=== PATIENT | female | born 2000 | race Caucasian/White ===

== ENCOUNTER 2023-11-29 11:09 | Observation (INO) | payer OTHER, SELFPAY ==
[2023-11-29] VITALS (13 sets, daily range): BP systolic 108–124; BP diastolic 55–74; PULSE 75–104; RESP 18; TEMP 37.4; BMI 25.8
--- NOTE | 2023-11-29 11:41 | OBADM ---
This patient, Tahira Shelton, admitted to the OB room 116 for observation for labor. Patient/family oriented to hospital policies and general routines including ID bracelet, bed and alarms, visiting hours, pain management, procedures, bathroom and other care routines, personal items, smoking policy, room service/diet, and visiting hours. Patient/Family are encouraged to report perceived risks to care and to ask questions if they do not understand what they are told or what they should do.
[2023-11-29 11:51] LABS: Appearance Urine Clear (Clear); Bacteria Urine None Seen /hpf; Bilirubin Urine Negative (Negative); Blood Urine Negative (Negative); Color Urine Yellow (Yellow); Glucose Urine UA Negative (Negative); Ketones Urine Negative (Negative); Leukocyte Esterase Ur Trace LEU/UL (Negative); Nitrate Urine Negative (Negative); Non Pathogenic Casts 0-2; Protein Urine Negative (Negative); RBC Urine 0-2 /hpf (0-2); Specific Grav Ur 1.005 (1.001-1.035); Squamous Epithelial Cell Urine None seen /hpf (Few); Urobilinogen Urine 0.2 mg/dL (<2.0); WBC Urine 0-5 /hpf
[2023-11-29 11:52] LABS: Add Urine Microscopic? YES
[2023-11-29] MEDS: BETAMETHASONE SOD PHOS/ACETATE 30 MG/5 ML VIAL 12 MG IM (12:08)
[2023-11-29] MEDS: TERBUTALINE SULFATE 1 MG/ML VIAL 0.25 MG SUB-Q (12:28)
[2023-11-29] MEDS: NIFEdipine 10 MG CAPSULE PO (14:36)
[2023-11-29] MEDS: ACETAMINOPHEN 500 MG TABLET 1000 MG PO (14:56)
--- NOTE | 2023-11-30 10:46 | PM.OBTRLD ---
OB - Triage/Final Diagnosis Visit Information Comments/Additional reasons for admission: I have assessed the risk for this patient, Tahira Shelton, and determined that she would benefit from observation care. Evaluation Laboratory results: Laboratory Tests 11/29/23 11:25 Urine Color Yellow Urine Appearance Clear Urine pH 7.0 Ur Specific [place] 1.005 Urine Protein Negative Urine Glucose (UA) Negative Urine Ketones Negative Ur Blood (Man) Negative Urine Nitrate Negative Urine Bilirubin Negative Urine Urobilinogen 0.2 Leukocyte Esterase Rfl Trace H Urine RBC 0-2 Urine WBC 0-5 Ur Squamous Epith Cells None seen Urine Bacteria None seen Urine Casts 0-2 Vital signs: Vital Signs - 24 hr 11/29/23 11:38 11/29/23 11:37 11/29/23 11:45 Temperature 99.3 F Pulse Rate 83 87 Respiratory Rate 18 Blood Pressure 122/74 114/74 Oxygen Delivery Room Air 11/29/23 12:00 11/29/23 12:15 11/29/23 12:26 Temperature Pulse Rate 75 88 90 Respiratory Rate Blood Pressure 116/71 113/69 122/74 Oxygen Delivery 11/29/23 12:30 11/29/23 13:00 11/29/23 13:30 Temperature Pulse Rate 90 102 H 87 Respiratory Rate Blood Pressure 114/73 124/70 112/56 L Oxygen Delivery 11/29/23 14:00 11/29/23 14:30 11/29/23 14:33 Temperature Pulse Rate 93 92 104 H Respiratory Rate Blood Pressure 108/55 L 112/65 121/67 Oxygen Delivery 11/29/23 15:00 11/29/23 15:30 Temperature Pulse Rate 97 100 Respiratory Rate Blood Pressure 122/70 120/65 Oxygen Delivery Final Diagnosis (1) contractions: Code(s): O47.00 - False labor before 37 completed weeks of gestation, unspecified trimester Status: Acute
== END 2023-11-29 15:45 | disposition home or self-care (01) ==
PROVIDERS: Admitting Provider Obstetrics & Gynecology; PCP Family Medicine; Visit Provider Obstetrics & Gynecology
DX: O47.03 False labor before 37 completed weeks of gestation, third trimester (principal); Z3A.34 34 weeks gestation of pregnancy
CPT/HCPCS: 81001; 96372; A9270; G0378; G0379; J0702; J3105

== ENCOUNTER 2023-11-30 09:45 | Observation (INO) | payer OTHER, SELFPAY ==
[2023-11-30] VITALS (8 sets, daily range): BP systolic 107–115; BP diastolic 65–71; PULSE 82–100; TEMP 36.7; BMI 25.8
--- NOTE | 2023-11-30 09:45 | OBADM ---
This patient, Tahira Shelton, admitted to the OB room OB Post 116 for observation. Patient/family oriented to hospital policies and general routines including ID bracelet, bed and alarms, visiting hours, pain management, procedures, bathroom and other care routines, personal items, smoking policy, room service/diet, and visiting hours. Patient/Family are encouraged to report perceived risks to care and to ask questions if they do not understand what they are told or what they should do.
--- NOTE | 2023-11-30 10:40 | PC.NURSE ---
Called Dr. Mccormick with pt status. Informed of pt complaining of contractions. 1 contractions seen on monitor in 30 min. SVE /-1, unchanged from yesterday. Reactive tracing noted. Monitor for additional 30min. If no further contractions noted, may D/C home with modified bedrest and PO hydration.
[2023-11-30] MEDS: BETAMETHASONE SOD PHOS/ACETATE 30 MG/5 ML VIAL 12 MG IM (11:32)
--- NOTE | 2023-12-03 11:42 | PM.OBTRLD ---
OB - Triage/Final Diagnosis Visit Information Comments/Additional reasons for admission: I have assessed the risk for this patient, Tahira Shelton, and determined that she would benefit from observation care. Final Diagnosis (1) contractions: Code(s): O47.00 - False labor before 37 completed weeks of gestation, unspecified trimester Status: Acute
== END 2023-11-30 11:40 | disposition home or self-care (01) ==
PROVIDERS: Admitting Provider Obstetrics & Gynecology; PCP Family Medicine; Visit Provider Obstetrics & Gynecology
DX: O47.03 False labor before 37 completed weeks of gestation, third trimester (principal); Z3A.34 34 weeks gestation of pregnancy
CPT/HCPCS: 96372; G0378; G0379; J0702

== ENCOUNTER 2023-12-05 10:57 | Outpatient (CLI) | payer OTHER, SELFPAY ==
[2023-12-05 11:54] VITALS: BP 131/76; PULSE 94
== END 2023-12-05 11:45 | disposition home or self-care (01) ==
LOC: ANHOBOP 11:40 → ANHLDR 11:40
PROVIDERS: PCP Family Medicine; Visit Provider Obstetrics & Gynecology
DX: O42.90 Premature rupture of membranes, unspecified as to length of time between rupture and onset of labor, unspecified weeks of gestation (principal); Z3A.00 Weeks of gestation of pregnancy not specified
CPT/HCPCS: 59025; 84112; 99199

== ENCOUNTER 2023-12-11 17:55 | Observation (INO) | payer OTHER, SELFPAY ==
[2023-12-11 18:18] VITALS: BMI 25.8
--- NOTE | 2023-12-12 14:18 | PM.OBTRLD ---
OB - Triage/Final Diagnosis Visit Information Reason for evaluation: threatened labor Comments/Additional reasons for admission: I have assessed the risk for this patient, Tahira Robbins Nikita, and determined that she would benefit from observation care.
== END 2023-12-11 19:13 | disposition home or self-care (01) ==
PROVIDERS: Admitting Provider Obstetrics & Gynecology; PCP Family Medicine; Visit Provider Obstetrics & Gynecology
DX: O47.03 False labor before 37 completed weeks of gestation, third trimester (principal); Z3A.35 35 weeks gestation of pregnancy
CPT/HCPCS: 84112; G0378; G0379

== ENCOUNTER 2023-12-17 20:03 | Observation (INO) | payer OTHER, SELFPAY ==
[2023-12-17 22:30] VITALS: BP 110/71; PULSE 74
[2023-12-17 23:00] VITALS: BP 113/72; PULSE 74
[2023-12-17 23:30] VITALS: BP 111/67; PULSE 74
--- NOTE | 2023-12-17 23:47 | PC.NURSE ---
Updated Dr. Mccormick on cervical exam, orders received to discharge pt with instructions on when to return to the unit and to see Dr. Mccormick at her next scheduled appointment.
[2023-12-17 23:54] VITALS: BMI 26.8
--- NOTE | 2023-12-17 23:55 | OBADM ---
This patient, Tahira Shelton, admitted to the OB room Labor/Delivery/Recovery 105 for observation. Patient/family oriented to hospital policies and general routines including ID bracelet, bed and alarms, visiting hours, pain management, procedures, bathroom and other care routines, personal items, smoking policy, room service/diet, and visiting hours. Patient/Family are encouraged to report perceived risks to care and to ask questions if they do not understand what they are told or what they should do.
--- NOTE | 2023-12-19 13:56 | PM.OBTRLD ---
OB - Triage/Final Diagnosis Visit Information Comments/Additional reasons for admission: I have assessed the risk for this patient, Tahira Shelton, and determined that she would benefit from observation care. Final Diagnosis (1) Abdominal pain affecting : Code(s): O26.899 - Other specified related conditions, unspecified trimester; R10.9 - Unspecified abdominal pain Status: Acute
== END 2023-12-18 00:06 ==
PROVIDERS: Admitting Provider Obstetrics & Gynecology; PCP Family Medicine; Visit Provider Obstetrics & Gynecology
DX: O26.893 Other specified pregnancy related conditions, third trimester (principal); R10.9 Unspecified abdominal pain; Z3A.36 36 weeks gestation of pregnancy
CPT/HCPCS: G0378; G0379

== ENCOUNTER 2023-12-21 13:28 | Observation (INO) | payer OTHER, SELFPAY ==
[2023-12-21 15:26] VITALS: BMI 27.1
== END 2023-12-21 15:15 | disposition home or self-care (01) ==
PROVIDERS: Admitting Provider Obstetrics & Gynecology; PCP Family Medicine; Visit Provider Obstetrics & Gynecology
DX: O26.899 Other specified pregnancy related conditions, unspecified trimester (principal); R10.9 Unspecified abdominal pain; Z3A.00 Weeks of gestation of pregnancy not specified
CPT/HCPCS: G0378; G0379

== ENCOUNTER 2023-12-22 11:11 | Inpatient (IN) | payer OTHER, SELFPAY ==
[2023-12-22] VITALS (38 sets, daily range): BP systolic 99–140; BP diastolic 52–98; PULSE 53–113; RESP 18; TEMP 36.6–37.1; O2SAT 97–100; BMI 27.1
[2023-12-22 12:44] LABS: Basophils Absolute Auto 0.1 K/mm3 (0.0-0.1); Basophils Percent Auto 0.3 % (0.2-1.2); Eosinophils Absolute Auto 0.1 K/mm3 (0-0.3); Eosinophils Percent Auto 0.5 % (0-4.4); Hematocrit 35.6 % (37.0-47.0); Hemoglobin 10.8 g/dL (12.0-15.0); Immature Granulocyte Absolute 0.15 K/mm3 (0.00-0.031); Lymphocytes Absolute Auto 1.61 K/mm3 (0.9-3.2); Lymphocytes Percent Auto 11.1 % (18.3-44.2); Mean Corpuscular HGB Conc 30.3 g/dl (32-36); Mean Corpuscular Volume 85.6 fl (80-100); Mean Platelet Volume 9.7 fl (7.4-10.4); Monocytes Absolute Auto 0.9 K/mm3 (0.1-0.6); Monocytes Percent Auto 6.4 % (2.6-8.5); Neutrophils Absolute Auto 11.7 K/mm3 (1.3-6.7); Neutrophils Percent Auto 80.7 % (45.5-73.1); Platelet Count Result 346 k/mm3 (150-375); Red Blood Count 4.16 M/mm3 (4.2-5.4); Red Cell Distribution Width 13.4 % (11.5-14.5); White Blood Count 14.5 K/mm3 (4.5-10.0)
[2023-12-22] MEDS: LACTATED RINGERS 1,000 ML 125 ML IV CONT (12:50)
[2023-12-22] MEDS: OXYTOCIN 30 UNITS/NS 500 ML 30 UNITS/500 ML BAG IV CONT (12:51)
[2023-12-22] MEDS: AMPICILLIN 2 GM/NS 100 ML 2 GM/100 ML BAG IVPB (12:52)
--- NOTE | 2023-12-22 13:02 | LDADM ---
This patient, Tahira Shelton, was admitted to Labor/Delivery/Recovery 106 on 12/22/23 at 11:11. Plans for labor, pain management and were discussed with patient. Patient/family oriented to hospital policies and general routines including ID bracelet, bed and alarms, visiting hours, pain management, procedures, bathroom and other care routines, personal items, smoking policy, room service/diet and guest tray routines, infant security routines, and visiting hours. Patient/Family are encouraged to report perceived risks to care and to ask questions if they do not understand what they are told or what they should do. See OBIX for further documentation.
--- NOTE | 2023-12-22 14:58 | PM.IMHP ---
H&P: HPI History of Present Illness Date/Time: 12/22/23 14:58 Chief Complaint: leakage of fluid Narrative: Tahira is a 23yo @ 37.3wks who presents to L&D with a large gush of fluid @ 1900 on 12/21/23. She has had advanced cervical dilation since 34wks; has received steroids. She has presented to L&D multiple times; ROM+ was positive this time. She has been having slight bleeding, (was evaluated 12/21/23 and minimal bleeding and unchanged cervix was noted). She has been 5/80/-1 for over 1 wk. She denies any symptoms of infection. Feeling good movement. She is having contractions. Review of Systems Constitutional: Constitutional: Denies chills, Denies fever(s) and Denies headache(s) Eyes: Eyes: Denies change in vision ENT: Denies headache(s) Cardiovascular: Cardiovascular: Denies chest pain and Denies dyspnea Respiratory: Respiratory: Denies dyspnea Genitourinary: Genitourinary: Denies abnormal vaginal bleeding and Reports vaginal discharge Neurologic: Denies headache(s) Psychiatric: Psychiatric: Denies anxiety and Denies depression [facility] Past Medical History Medical History Endometriosis Lupus PCOS (polycystic ovarian syndrome) Suppression of menses Vaginal discharge Surgical History Surgical History H/O hernia repair History of hysteroscopy D & C Family History Family History (Updated 12/13/23 @ 13:57 by Trena Disal RN) Grandparent Family history of type 2 diabetes mellitus Mother No problems noted. Sibling Group B streptococcal infection Social History Social History Smoking status: Former smoker Tobacco type: e-cigarettes/vaping Smoking end date: 03/22/23 Alcohol intake: never Substance use: never Do You Feel Safe in your Home?: Yes Lack of Transportation: No Lack of Food: Never True Current Housing: I Have Housing Concerned About Future Housing: No Difficulty Paying Gas/Electric Bills: No Difficulty Paying for Meds: No Currently Unemployed: No Education: Trade/Vocational Certificate Difficulty w/ Childcare or Family Care: No Living arrangements: with family Occupation/Education: occupation Gender identity (if verbalized by the patient): Female Spiritual care concerns: No Meds Home Medications and Allergies Home Medications Medication Instructions Recorded Confirmed Type aspirin 81 mg tablet,delayed 81 mg PO DAILY 07/25/23 12/22/23 History release (Adult Low Dose Aspirin) vits no.126-ferrous fum 1 tablet PO DAILY 07/25/23 12/22/23 History 28 mg iron-folic acid 800 mcg tablet (Classic ) Allergies Allergy/AdvReac Type Severity Reaction Status Date / Time No Known Allergies Allergy Verified 12/22/23 13:10 Vital Signs Vital Signs - 24 hr 12/22/23 12:15 12/22/23 12:46 12/22/23 13:01 Temperature Pulse Rate 87 85 87 Blood Pressure 135/83 133/76 140/74 Oxygen Delivery 12/22/23 13:16 12/22/23 13:31 12/22/23 13:00 Temperature 98.7 F Pulse Rate 90 93 Blood Pressure 138/73 129/73 Oxygen Delivery 12/22/23 14:16 12/22/23 14:31 12/22/23 14:46 Temperature Pulse Rate 84 88 96 Blood Pressure 122/58 L 127/69 118/68 Oxygen Delivery 12/22/23 12:53 Temperature Pulse Rate Blood Pressure Oxygen Delivery Room Air Exam Const: General: cooperative, uncomfortable (with contractions) and obese Nutritional Appearance: obese Orientation/consciousness: patient oriented x3 Resp: Effort & Inspection: normal respiratory effort Cardio: Rate: regular rate GI: GI Palp: No abdominal tenderness : Other: FHT's: 140's/ mod parris/ + accels/ no decels - cat 1 TOCO: ctxs q3-7min Cervix: 5/80/-1 Membranes: ROM+ positive 12/22/23; had LOF 12/21/23 @ 1900 Presentation: cephalic Skin: General
--- NOTE | 2023-12-22 16:10 | PM.OBPNLAB ---
Pain Control Date/time seen: 12/22/23 16:10 Pain control: tolerating well Pelvic Exam Dilation (cm): 6 Effacement (%): 90 station: 0 Amniotic membrane status: Ruptured (forebag ruptured, clear 1610) Contractions Monitor mode: External Contraction frequency: 2 Contraction pattern: Regular Status status: Category ll (occasional late/variable) Assessment and Plan Pitocin rate (mU/min): 10 Assessment: active labor Plan: continuous present management Comments: ; Rh negative, but is antibody positive (ab identification and titer pending since she never did blood work here)-- pt reports getting rhogam with her glucose screening.
[2023-12-22] MEDS: AMPICILLIN 1 GM/NS 50 ML 1 GM/50 ML BAG IVPB (17:00)
[2023-12-22] MEDS: miSOPROStol 200 MCG TABLET 800 MCG (18:10)
[2023-12-22] MEDS: METHYLERGONOVINE MALEATE 0.2 MG/ML VIAL IM (18:20)
--- NOTE | 2023-12-22 18:27 | P.PCNOB_ITS ---
OB - Vaginal Delivery Note Procedure Delivery date: 12/22/23 Events: Other (SROM) Delivery augmentation: Pitocin Delivery monitor: External FHT and External Uterine Route of delivery: Laceration Description: Labial (right) Delivery repair: vicryl Specimen: Yes (placenta) Quantitative Blood Loss (ml): 400 Anesthesia type: Local Disposition: Floor Complications: No immediate complications [place] Baby Date of : 12/22/23 Time of : 18:02 Weeks of gestation at delivery: 37 (3) gender: Female presentation: vertex position: Right Occiput Anterior Placenta delivery description: Expressed Cord Vessel Description: 3 Vessels and Delayed Cord Clamping score one minute: 8 score five minutes: 9 Narrative: Tahira rapidly progressed to complete dilation with strong desire to push, as she did not have an epidural. She pushed for approximately 30 minutes with good maternal effort. She delivered the head over intact perineum. No nuchal cord was palpated. She easily delivered the 's shoulders and body without complication. The infant was immediately placed skin to skin and had spontaneo us cry. Delayed cord clamping was performed. The umbilical cord was then doubly clamped and cut. A segment of cord was collected for cord gases. The remaining cord blood was collected for typing. With Pitocin running and gentle downward traction on the cord, the placenta delivered without complications. Brisk bleeding was noted and bimanual massage revealed uterine atony and multiple clots were removed. Cytotec 800 mcg was placed rectally by the nurse. She was examined and a right labial laceration was identified. The laceration was repaired in the normal fashion using 3-0 Vicryl brisk bleeding was once again noted and bimanual massage revealed atony and multiple clots were once again removed. Methergine 0.2mg IM was given and the uterus was then found to be firm with minimal bleeding. Sponge, lap, instrument, needle counts were correct at the end of the procedure. Mom and baby were left bonding birthing suite in stable condition. [facility] Delivery Billing Delivery Delivery: Delivery Charge
[2023-12-22] MEDS: OXYTOCIN 30 UNITS/NS 500 ML 30 UNITS/500 ML BAG 125 UNITS IV CONT (18:34)
[2023-12-22] MEDS: WITCH HAZEL 40 PADS 1 PAD TOPICAL (20:23)
[2023-12-22] MEDS: BENZOCAINE 20% AER SPR (*SP) 56 GM CAN 1 SPRAY TOPICAL (20:23)
[2023-12-23] VITALS: BP 121/63; PULSE 88; RESP 18; TEMP 36.9; O2SAT 100
[2023-12-23 06:08] LABS: Hematocrit 31.6 % (37.0-47.0); Hemoglobin 9.7 g/dL (12.0-15.0)
--- NOTE | 2023-12-23 08:36 | P.PNOB_ITS ---
OB - PN: Subj Subjective Date/time seen: 12/23/23 08:36 Narrative: PPD#1 Tahira reports doing well today. Her bleeding is getting bar assistant today. Her pain is controlled. She is tolerating regular diet, voiding, passing gas, and ambulating without issues. She is breast feeding. OB - PN: Obj Data Labs 12/23/23 05:58 Labs: Laboratory Results - last 24 hr 12/22/23 12/23/23 12:13 05:58 WBC 14.5 H RBC 4.16 L Hgb 10.8 L 9.7 L Hct 35.6 L 31.6 L MCV 85.6 MCH 26.0 MCHC 30.3 L RDW 13.4 Plt Count 346 MPV 9.7 Immature Gran % (Auto) 1.0 H Neut % (Auto) 80.7 H Lymph % (Auto) 11.1 L [place] % (Auto) 6.4 Eos % (Auto) 0.5 Baso % (Auto) 0.3 Lymph # (Auto) 1.61 [place] # (Auto) 0.9 H Eos # (Auto) 0.1 Baso # (Auto) 0.1 Abs Immat Gran (auto) 0.15 H Absolute Neuts (auto) 11.7 H Absolute Nucleated RBC 0.0 Nucleated RBC % 0.0 Blood Type A Negative Antibody Screen Positive Antigen Identification Cancelled LAURA, IgG Interpret Not Performed LAURA, Poly Interpret Negative LAURA, Complement Interp Not Performed OB - PN A/P Assessment and Plan (1) Normal vaginal delivery of second : Code(s): O80 - Encounter for full-term uncomplicated delivery Status: Acute Plan day: 1 Plan: routine care Comments: - [facility] contacted and verified that she did get Rhogam 11/08/23; faxing results over to L&D - Anemia noted; will give venofer 500mg IV once - PO pain meds - Ambulation and hydration encouraged - Continue putting baby to breast Time Spent With Patient Time: Total time spent is greater than 50% in coordination of care (as documented) at patient's floor/unit and/or counseling patient: Review of Systems Constitutional: Constitutional: Denies chills, Denies fever(s) and Denies headache(s) Eyes: Eyes: Denies change in vision ENT: Denies dizziness and Denies headache(s) Cardiovascular: Cardiovascular: Denies chest pain, Denies palpitations and Denies dyspnea Respiratory: Respiratory: Denies cough and Denies dyspnea Gastrointestinal: Gastrointestinal: Denies nausea and Denies vomiting Neurologic: Denies dizziness and Denies headache(s) Endocrine: Endocrine: Denies palpitations Exam Const: General: cooperative, comfortable and no acute distress Orientation/consciousness: patient oriented x3 Resp: Effort & Inspection: normal respiratory effort Auscultation: clear to auscultation bilaterally Cardio: Rate: regular rate GI: Inspection: non-distended GI Palp: No abdominal tenderness and Yes Soft to palpation Auscultation: normal bowel sounds : Other: fundus firm Skin: General skin exam: normal color Neuro: General: patient oriented x3 Extrem: General: normal to inspection Psych: Appearance: grossly normal Affect: normal affect Attitude: cooperative
[2023-12-23 09:10] VITALS: BP 119/79; PULSE 85; RESP 18; TEMP 37; O2SAT 99
[2023-12-23] MEDS: IRON SUCROSE COMPLEX 500 MG in SODIUM CHLORIDE 0.9% IV 250 ML 79 MG IVPB (10:03)
[2023-12-23] MEDS: POLYSACCHARIDE IRON COMPLEX 150 MG CAPSULE PO ×2 (10:12→16:47)
[2023-12-23] MEDS: MULTIVIT/MIN/PREN/FOL AC/IRON TABLET 1 TAB PO (10:12)
[2023-12-23] MEDS: DOCUSATE SODIUM 100 MG CAPSULE PO ×2 (10:12→16:47)
[2023-12-23 13:45] VITALS: BP 111/72; PULSE 57; RESP 16; TEMP 36.5; O2SAT 100
--- NOTE | 2023-12-23 18:50 | PC.NURSE ---
1529 Called to speak with [facility] about Rhogam shot, and why was it canceled? Lab answered and stated they will look into it and call back. 174 Lab called back and stated that the Rhogam shot should be ready soon and then we can come down and pick it up. Asked if it was ok to come after report at 1830 He said yes.
[2023-12-23] MEDS: RHO(D) IMMUNE GLOBULIN 300 MCG/2 ML SYRINGE IM (19:22)
[2023-12-23 21:20] VITALS: BP 120/80; PULSE 70; RESP 16; RESP 18; TEMP 36.9; O2SAT 99
--- NOTE | 2023-12-24 06:42 | PM.OBDSVD ---
DS: Admitting Diagnosis Discharge Date 12/24/23 Admitting Diagnosis SROM DS: Discharge Diagnosis Discharge Diagnosis (1) Normal vaginal delivery of second : Code(s): O80 - Encounter for full-term uncomplicated delivery Status: Acute (2) Prolonged rupture of membranes: Code(s): O42.90 - Premature rupture of membranes, unspecified as to length of time between rupture and onset of labor, unspecified weeks of gestation Status: Acute (3) Rh negative status during : Code(s): O26.899 - Other specified related conditions, unspecified trimester; Z67.91 - Unspecified blood type, Rh negative Status: Acute OB - DS: Summary OB Procedures : Ultrasound and PTL Mgmt OB Procedures Intrapartum: Spontaneous Vag Delivery OB Procedures: : RHo (D) lg and Other (Venofer 500mg IV once) Peripartum Data Delivery Method: Natural Vaginal Laceration Description: Labial (right) complications: none 1: Gender: Female Disposition of : home Status at Discharge Functional status at discharge: independent ambulation Overall status at discharge: patient is back to baseline Time Spent with Patient Time attestation: Total time spent providing and/or coordinating discharge services: Time spent: Less than 30 minutes Exam Const: General: cooperative, healthy appearing, comfortable and no acute distress Orientation/consciousness: patient oriented x3 Resp: Effort & Inspection: normal respiratory effort Auscultation: clear to auscultation bilaterally Cardio: Rate: regular rate GI: Inspection: non-distended GI Palp: No abdominal tenderness and Yes Soft to palpation Auscultation: normal bowel sounds : Other: fundus firm Skin: General skin exam: normal color Neuro: General: patient oriented x3 Extrem: General: normal to inspection Psych: Appearance: grossly normal Affect: normal affect Attitude: cooperative DS: Data Data Completed and Pending Pending studies at discharge: Pending at discharge 12/22/23 18:06 Surgical [PTH] Routine Labs on day of discharge: Labs from last 24 hours 12/23/23 12/23/23 12/22/23 05:58 05:54 12:13 Hgb 9.7 L Hct 31.6 L Blood Type A Negative Cancelled Rho(D) Type Cancelled Antibody Screen TNP Cancelled Antibody Identification Passive Due to RH Imm Glob Antigen Identification Cancelled LAURA, Poly Interpret Negative Screen Negative Cancelled Baby's Blood Type A pos Cancelled Baby's LAURA Positive Cancelled Doses of RhIg Required 1 Cancelled Discharge Plan Discharge Attending physician on discharge: Rebeca Mccormick Discharging Clinician: Rebeca Mccormick Anticipated Discharge Date/Time: 12/24/23 11:00 Patient Disposition: Home, Self-Care Activity: may shower and pelvic rest Diet: regular Patient Instructions: Vaginal Delivery (DC) Stand Alone Forms: General Discharge Information Follow-up/Referrals: Rebeca Mccormick MD [Physician] - 4 Weeks Discharge Medications: New acetaminophen 325 mg Tablet 975 mg PO Q6H PRN (Reason: Mild Pain (1-3) Or Headache) Qty: 100 0RF docusate sodium 100 mg Capsule 100 mg PO BID PRN (Reason: Constipation) Qty: 100 0RF ibuprofen 600 mg Tablet 600 mg PO Q6H PRN (Reason: Cramping) Qty: 60 0RF Continued Classic 28 mg iron- 800 mcg tablet 1 tablet PO DAILY Discontinued aspirin [Adult Low Dose Aspirin] 81 mg tablet,delayed release (DR/EC) 81 mg PO DAILY Date of admission: 12/22/23 11:11 Primary Care Provider: Gamal,Bridget Yan Admitting Provider: Rebeca Mccormick Attending physician on admission: Rebeca Mccormick Condition: Stable
[2023-12-24 08:00] VITALS: BP 119/74; PULSE 87; RESP 16; TEMP 36.6; O2SAT 100
[2023-12-24] MEDS: MULTIVIT/MIN/PREN/FOL AC/IRON TABLET 1 TAB PO (08:15)
[2023-12-24] MEDS: DOCUSATE SODIUM 100 MG CAPSULE PO (08:15)
[2023-12-24] MEDS: POLYSACCHARIDE IRON COMPLEX 150 MG CAPSULE PO (08:15)
--- NOTE | 2023-12-24 10:04 | PC.NURSE ---
Patient viewed the discharge video Mother & Baby Care, The First Two Weeks . Patient was given the opportunity and encouraged to ask questions. Patient verbalized understanding of information shared and has been given the mother/baby guide for home reference.
--- NOTE | 2023-12-24 11:31 | PC.NURSE ---
[id number] Introductions were made, then consulted with patient to assess needs related to . Mother led the conversation with her?plans to feed?her infant and the?experience so far. Encouraged understanding of the benefits of skin to skin (demonstrating unwrapping and placing upright on her chest), stimulating with massage touch, changing positions to encourage wakefulness, how to watch for early feeding cues, responsive feeding, feeding on demand (aiming for 8-12 times in 24 hours, about every 2-3 hours), milk production, building/maintaining a milk supply, duration of feeding, signs of adequate intake/output and how to record on the feeding sheet. Mother works well with her with encouragement and education, however; latches infant with nipple visualized in the corner of the mouth. Infant is either sleeping or demonstrating late feeding cues. Mother hand expresses colostrum to a spoon and infant is spoon fed, then settles at the breast. We reviewed positioning and ear, shoulder, hip alignment, supporting the breast to facilitate a deep latch, asymmetrical latch (off-center), leading with the chin with a big, open, wide gape and body close to mother. latched optimally to the left breast in cross cradle position with minimal assistance. Education given to the mother of how to visualize the suckling (with good rocking jaw motion), swallows (dropping of the lower jaw) and how to listen for drinking at the breast (the ka sound) which infant demonstrates. Infant was able to maintain latch without pain to mother protecting the nipple with optimal positioning and latching. Infant has a tongue that has a tight lower frenulum attachment. We discussed the importance of stimulating infant to wake and breastfeed every 2-2.5 hours during the daytime, 3-4 hours once during the nighttime and to not let go >5 hours more than one time in a 24 hour period. Late behaviors, what to watch for and when to call the care provider using the feeding sheet and mom/baby guide. Reviewed comfort measures of healing with a warm, wet washcloth to rinse breast, then leave open to air-dry, good handwashing when or touching the breast/nipples to prevent infection. Reviewed the difference between non-nutritive vs nutritive sucking and way to encourage to effectively breastfeed actively rather that hanging out at the breast. Infant has had appropriate feedings in the last 24 hours with , syringe, and bottle feeding with breast milk meeting the outcomes for weight, output, blood sugar and jaundice at this time. Reinforced understanding of milk production, transition of milk, signs of adequate intake, transition of stool, prevention/relief of engorgement, plugged ducts, mastitis, responsive watching for feeding cues, the different methods of stimulating infant to breastfeed 1-3 hours after the start of the last feeding, community resources, and when to call a provider using the resource of the feeding sheet along with the mom and baby guide. Mother voiced understanding of skin to skin, stimulating with massage touch, responsive feedings, hand expressed colostrum (mother expresses copious colostrum), encourage if it has been 2 -2.5 hours since the start of the last , to call if infant does not latch, or if there is discomfort with . Resources used for education were facilitated with the visual educational handouts/ tool/mom and baby guide. Inpatient/outpatient resources provided with feeding sheet and the mom/baby guide. Reported to the Primary RN.
[2023-12-24 14:04] LABS: Rapid Plasma Reagin Non-Reactive (NonReactive)
[2023-12-25 11:47] VITALS: BP 132/72; PULSE 74; RESP 18; TEMP 37.2; O2SAT 100
== END 2023-12-24 12:40 | disposition home or self-care (01) | DRG 807 ==
LOC: ANHLDR 18:57 → ANHOB2 21:03
PROVIDERS: Admitting Provider Obstetrics & Gynecology; PCP Family Medicine; Visit Provider Obstetrics & Gynecology
DX: O42.92 Full-term premature rupture of membranes, unspecified as to length of time between rupture and onset of labor (principal); Z37.0 Single live birth; O70.0 First degree perineal laceration during delivery; O99.02 Anemia complicating childbirth; D64.9 Anemia, unspecified; Z3A.37 37 weeks gestation of pregnancy; Z67.91 Unspecified blood type, Rh negative; Z87.891 Personal history of nicotine dependence
CPT/HCPCS: 36415; 84112; 85014; 85018; 85025; 85461; 86592; 86850; 86880; 86900; 86901; 86902; 88307; 90384; A9270; G0378; G0379; J0290; J1756; J2210; J2590; J2790; J7050; J7120

== ENCOUNTER 2024-09-26 15:41 | Outpatient (CLI) | payer OTHER, SELFPAY ==
--- NOTE | ~2024-09-26 | US_ITS ---
US OB <=14 wk fetus w TV DATE: 09/26/2024 16:04 INDICATION: Revision of normal TECHNIQUE: Real-time imaging via transabdominal and transvaginal approaches COMPARISON: None FINDINGS: The uterus measures 8.6 cm sagittal, 5.5 cm AP and 5.2 cm transverse dimension. A normally shaped intrauterine gestational sac is identified with normal surrounding decidual reactio n. Yolk sac is identified. pole is identified with crown-rump length 0.49 cm, consistent with 6 weeks 1 day estimated gest ational age. Normal amniotic fluid. No subchorionic hematoma is noted. The right ovary measures 2.7 x 3.9 x 2.4 cm. The left ovary is not visualized. IMPRESSION: Estimated gestational age 6 weeks 1 day plus or minus 4 days; SAM 05/21/2025 Reviewed, dictated and finalized at [facility]. Reviewed, dictated and finalized at [facility]. 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
== END 2024-09-26 15:42 | disposition home or self-care (01) ==
LOC: MICIMG 15:42
PROVIDERS: PCP Family Medicine; Visit Provider Obstetrics & Gynecology
DX: Z36.9 Encounter for antenatal screening, unspecified (principal)
CPT/HCPCS: 76801; 76817

== ENCOUNTER 2025-04-01 18:41 | Outpatient (CLI) | payer OTHER, SELFPAY ==
[2025-04-01 19:08] VITALS: BP 118/66; PULSE 89
[2025-04-01 19:16] VITALS: BP 121/70; PULSE 80
[2025-04-01 19:31] VITALS: BP 119/67; PULSE 88
[2025-04-01 19:46] VITALS: BP 114/64; PULSE 85; TEMP 36.4
[2025-04-01 20:56] VITALS: BP 118/66; PULSE 89
--- NOTE | 2025-04-01 20:59 | PC.NURSE ---
1943- RN notified MD of patient arrival and patient complaints. RN notified MD that patient states she was laying down and felt the baby kick and then her underwear were wet. RN notified MD that ROM plus was negative. RN also notified MD of FHT tracing with moderate variability and accelerations and a prolonged acceleration at the beginning of the tracing. RN also notified MD of the presence of contractions and uterine irritability and that abdomen is soft to palpation and that patient only feels occasional cramping, and that patient did not take her Procardia. MD gave orders to have the patient take her Procardia as prescribed and to d/c patient and have her follow up in the office.
--- NOTE | 2025-04-01 21:11 | PC.NURSE ---
184- Patient arrived to OB unit with complaints of leaking. Patient states she felt the baby kick and then right after her underwear were yet. Patient denies feeling any contractions, but feels occasional cramping. Patient states she is on Procardia for labor this , but no other complications. Patient denies vaginal bleeding and patient states she has positive movement. Patient is a with an EDC 05/21/25 and is 32&6 today.
[2025-04-01 21:19] LABS: OBXCEM ROM Plus Negative (Negative)
== END 2025-04-01 19:50 | disposition home or self-care (01) ==
LOC: ANHOBOP 18:46 → ANHOBPP 04-07 07:23
PROVIDERS: PCP Family Medicine; Visit Provider Obstetrics & Gynecology
DX: O42.90 Premature rupture of membranes, unspecified as to length of time between rupture and onset of labor, unspecified weeks of gestation (principal); Z3A.00 Weeks of gestation of pregnancy not specified
CPT/HCPCS: 59025; 84112; 99199

== ENCOUNTER 2025-04-07 09:55 | Observation (INO) | payer OTHER, SELFPAY ==
[2025-04-07] VITALS (56 sets, daily range): BP systolic 109–155; BP diastolic 50–87; PULSE 67–113; RESP 16–18; TEMP 36.6; O2SAT 94–100
--- NOTE | ~2025-04-07 | US_ITS ---
LIMITED OBSTETRIC ULTRASOUND Ordering provider: Rebeca Mccormick MD History: . AMERICO, check position, placenta . Comparison: None. FINDINGS: MATERNAL CERVIX: Not visualized. cm which is normal (normal is equal to or greater than 3.0 cm). PRESENTATION: Vertex. Longitudinal lie. PLACENTAL LOCATION: Anterior. No previa. HEART RATE: 143 bpm (normal is between 110 to 160 bpm). AMNIOTIC FLUID INDEX: 12.5 cm. 5th percentile is 8.3 cm. 95th percentile is 24.5 cm. Largest vertica l pocket is 5.7 cm. normal (AMERICO between 5-25 cm in from 20-35 weeks gestation is considered normal). OTHER: Maternal ovaries not visualized. IMPRESSION: Single live fetus of cephalic presentation. Normal amniotic fluid. Anterior placenta. Reviewed, dictated and finalized at location A.
[2025-04-07] MEDS: DEXTROSE 5%/LACTATED RINGERS 1,000 ML 999 ML IV CONT (10:42)
[2025-04-07] MEDS: BETAMETHASONE SOD PHOS/ACETATE 30 MG/5 ML VIAL 12 MG IM (10:49)
[2025-04-07 11:05] LABS: Add Urine Microscopic? YES; Appearance Urine Clear (Clear); Bacteria Urine None Seen /hpf; Bilirubin Urine Negative (Negative); Blood Urine Negative (Negative); Color Urine Yellow (Yellow); Glucose Urine UA Negative (Negative); Ketones Urine Negative (Negative); Leukocyte Esterase Ur Trace LEU/UL (Negative); Nitrate Urine Negative (Negative); Non Pathogenic Casts 0-2; Protein Urine Negative (Negative); RBC Urine 0-2 /hpf (0-2); Specific Grav Ur 1.006 (1.001-1.035); Squamous Epithelial Cell Urine None Seen /hpf (Few); Urobilinogen Urine 0.2 mg/dL (<2.0); WBC Urine 0-5 /hpf (0-3); pH Urine 7.5 (5.0-9.0)
--- NOTE | 2025-04-07 12:19 | PM.IMHP ---
H&P: HPI History of Present Illness Date/Time: 04/07/25 12:19 Chief Complaint: contractions, leakage Narrative: Tahira is a 24yo @ 33w 5d who presented to routine care. She endorsed increase in her pelvic pressure and random strong contractions. She has also has an increase in discharge which has also had some light streaks of blood. She was examined and found 370/-2 with increase in discharge. GBS was collected today in office. She was sent to L&D where ROM+ was found to be positive. She had an US confirming cephalic presentation; AMERICO 12cm. She has not had contractions on the monitor and he is category 1 tracing. Afebrile, no abdominal pain, WBC 8.8. She had been in 04/01/25 for concerns of leakage but ROM + was negative. Review of Systems Constitutional: Constitutional: Denies chills, Denies fever(s) and Denies headache(s) Eyes: Eyes: Denies change in vision ENT: Denies headache(s) Cardiovascular: Cardiovascular: Denies chest pain and Denies dyspnea Respiratory: Respiratory: Denies dyspnea Genitourinary: Genitourinary: Reports abnormal vaginal bleeding, Reports pelvic pain and Reports vaginal discharge Neurologic: Denies headache(s) Psychiatric: Psychiatric: Denies anxiety and Denies depression PMF Past Medical History Medical History Vaginal discharge Suppression of menses Endometriosis PCOS (polycystic ovarian syndrome) Lupus Surgical History Surgical History H/O hernia repair History of hysteroscopy D & C Family History Family History Grandparent Family history of type 2 diabetes mellitus Mother No problems noted. Sibling Group B streptococcal infection Social History Social History Smoking status: Former smoker Tobacco type: e-cigarettes/vaping Smoking end date: 03/22/23 Additional smoking assessment comments: using patch to quit Alcohol intake: never Substance use: never Substance use type: does not use Do You Feel Safe in your Home?: Yes Lack of Transportation: No Lack of Food: Never True Current Housing: I Have Housing Concerned About Future Housing: No Difficulty Paying Gas/Electric Bills: No Difficulty Paying for Meds: No Currently Unemployed: No Education: High School Diploma/GED Difficulty w/ Childcare or Family Care: No Living arrangements: with family Occupation/Education: 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 Gender identity (if verbalized by the patient): Female Sexual Orientation (if Verbalized by the Patient): Straight or Heterosexual Spiritual care concerns: No Meds Home Medications and Allergies Home Medications ?Medication ?Instructions ?Recorded ?Confirmed ?Type docosahexaenoic acid 200 mg 200 mg PO DAILY 09/23/24 04/07/25 History capsule ( DHA) magnesium oxide 400 mg PO QHS #90 caps 09/23/24 04/07/25 Rx ferrous sulfate 325 mg (65 mg 325 mg PO DAILY 12/16/24 04/07/25 History iron) tablet (Feosol) nifedipine 10 mg capsule 10 mg PO DAILY #30 caps 03/26/25 04/07/25 Rx Allergies Allergy/AdvReac Type Severity Reaction Status Date / Time No Known Allergies Allergy Verified 04/07/25 08:54 Vital Signs Vital Signs - 24 hr 04/07/25 10:11 04/07/25 10:13 04/07/25 10:16 Pulse Rate 87 88 Blood Pressure 121/69 113/65 Pulse Oximetry 100 99 04/07/25 10:21 04/07/25 10:26 04/07/25 10:31 Pulse Rate 82 Blood Pressure 115/59 L Pulse Oximetry 100 100 99 04/07/25 10:36 04/07/25 10:41 04/07/25 10:46 Pulse Rate 72 Blood Pressure 115/59 L Pulse Oximetry 99 99 99 04/07/25 10:51 04/07/25 10:56 04/07/25 11:01 Pulse Rate 80 Blood Pressure 115/63 Pulse Oximetry 100 100 100 04/07/25 11:06 04/07/25 11:11 04/07/25 11:15 Pulse Rate 74 Blood Pressure 111/61 Pulse Oximetry 100 100 04/07/25 11:16 04/07/25 11:20 04/07/25 11:25 Pulse Rate Blood Pressure Pulse Oximetry 100 100 100 04/07/25 11:30 04/07/25 11:35 04/07/25 11:40 Pulse Rate 67 Blood Pressure 110/57 L Pulse Oximetry 100 100 100 04/07/25 11:49 04/07/25 11:54 04/07/25 11:59 Pulse Rate Blood Pressure Pulse Oximetry 100 100 100 04/07/25 12:00 04/07/25 12:04 04/07/25 12:09 Pulse Rate 74 Blood Pressure 109/55 L Pulse Oximetry 100 100 04/07/25 12:14 04/07/25 12:15 Pulse Rate 86 Blood Pressure 115/63 Pulse Oximetry 100 Exam Const: General: cooperative, healthy appearing, comfortable and no acute distress Orientation/consciousness: patient oriented x3 Resp: Effort & Inspection: normal respiratory effort Cardio: Rate: regular rate GI: GI Palp: No abdominal tenderness : Other: FHT's: 140's/ mod parris/ + accels/ no decels - cat 1 TOCO: irritability Cervix: 3/70/-2 Membranes: ROM+ positive Presentation: cephalic Skin: General skin exam: normal color Neuro: General: patient oriented x3 Extrem: General: normal to inspection Psych: Appearance: grossly normal Affect: normal affect Attitude: cooperative H&P: Results Labs Labs: Urine 04/07/25 Range/Units 10:49 Urine Color Yellow (Yellow) Urine Appearance Clear (Clear) Urine pH 7.5 (5.0-9.0) Ur Specific [place] 1.006 (1.001-1.035) Urine Protein Negative (Negative) mg/dL Urine Glucose (UA) Negative (Negative) mg/dL Assessment and Plan Assessment and plan (1) premature rupture of membranes (PPROM) with unknown onset of labor: Code(s): O42.919 - premature rupture of membranes, unspecified as to length of time between rupture and onset of labor, unspecified trimester Status: Acute Plan - PPROM at 33w5d; will start ampicillin 2g - ANCS; s/p betamethasone 12mg IM - heart tones reassuring - No signs of infection - discussed with JARRET MART and will transfer patient due to prematurity (discussed with Dr. Marina, BRITTNY @ [phone], accepted pt to [facility] at 1244)
[2025-04-07 12:37] LABS: Basophils Percent Auto 0.2 % (0.2-1.2); Eosinophils Percent Auto 0.5 % (0-4.4); Hematocrit 30.8 % (37.0-47.0); Hemoglobin 9.6 g/dL (12.0-15.0); Immature Granulocyte Absolute 0.07 K/mm3 (0.00-0.031); Immature Granulocyte Percent A 0.8 % (0-0.5); Lymphocytes Absolute Auto 1.42 K/mm3 (0.9-3.2); Lymphocytes Percent Auto 16.2 % (18.3-44.2); Mean Corpuscular HGB Conc 31.2 g/dl (32-36); Mean Corpuscular Hemoglobin 26.2 pg (26-34); Mean Corpuscular Volume 83.9 fl (80-100); Monocytes Absolute Auto 0.7 K/mm3 (0.1-0.6); Neutrophils Absolute Auto 6.5 K/mm3 (1.3-6.7); Neutrophils Percent Auto 74.3 % (45.5-73.1); Platelet Count Result 328 k/mm3 (150-375); Red Blood Count 3.67 M/mm3 (4.2-5.4); Red Cell Distribution Width 12.9 % (11.5-14.5); White Blood Count 8.8 K/mm3 (4.5-10.0)
[2025-04-07 12:46] LABS: Alanine Aminotransferase 12 U/L (6-35); Albumin Level 3.5 g/dL (3.5-5.1); Alkaline Phosphatase 128 U/L (38-126); Anion Gap 6 mmol/L (4-12); Aspartate Amino Transferase 22 U/L (14-36); Bilirubin,Total 0.6 mg/dL (0.2-1.3); Blood Urea Nitrogen 6 mg/dL (7-17); Calcium 8.9 mg/dL (8.4-10.2); Carbon Dioxide 22 mmol/L (22-30); Chloride 107 mmol/L (98-107); Estimated Glomerular Filt Rate > 60; Glucose 61 mg/dL (65-110); Potassium 3.6 mmol/L (3.4-5.0); Sodium 135 mmol/L (137-145); Total Protein 6.8 g/dL (6.3-8.2)
[2025-04-07] MEDS: AMPICILLIN 2 GM/NS 100 ML 2 GM/100 ML BAG IVPB (13:00)
[2025-04-07 13:19] LABS: Syphilis IgG/IgM Antibody Non-Reactive (Nonreactive)
[2025-04-07 13:33] LABS: HIV 1/2 Ab P24 Ag Result Negative (Negative)
--- NOTE | 2025-04-08 12:12 | PM.TDS ---
Transfer Discharge Sum: Prov Provider Date of admission: 04/07/25 09:55 Primary care physician: Armando Yadav M.D. Admitting clinician: Rebeca Mccormick MD Attending physician on admission: Rebeca Mccormick Consults: [facility] Attending physician on discharge: Rebeca Mccormick Anticipated date of transfer: 04/07/25 Receiving physician/facility: [facility]/L&D DS: Admitting Diagnosis Discharge Date 04/07/25 Admitting Diagnosis PPROM DS: Discharge Diagnosis Discharge Diagnosis (1) premature rupture of membranes (PPROM) with unknown onset of labor: Code(s): O42.919 - premature rupture of membranes, unspecified as to length of time between rupture and onset of labor, unspecified trimester Status: Acute Transfer Discharge Sum: Med Medications Active and Home Medications: Home Medications docosahexaenoic acid 200 mg capsule ( DHA) 200 mg PO DAILY 09/23/24 [History Confirmed 04/07/25] magnesium oxide 400 mg PO QHS #90 caps 09/23/24 [Rx Confirmed 04/07/25] ferrous sulfate 325 mg (65 mg iron) tablet (Feosol) 325 mg PO DAILY 12/16/24 [History Confirmed 04/07/25] nifedipine 10 mg capsule 10 mg PO DAILY #30 caps 03/26/25 [Rx Confirmed 04/07/25] Transfer Discharge Sum: Hosp Hospital Course Hospital course: Tahira is a 24yo @ 33w 5d who presented to routine care. She endorsed increase in her pelvic pressure and random strong contractions. She has also has an increase in discharge which has also had some light streaks of blood. She was examined and her cervix was found to be 3/70/-2 with increase in discharge. GBS was collected 04/07/25 in office. She was sent to L&D for PTL and rule out rupture; where ROM+ was found to be positive. She had an US confirming cephalic presentation; AMERICO 12cm. She has not had contractions on the monitor and baby was category 1 tracing. Afebrile, no abdominal pain, WBC 8.8. [facility] was contacted and agreed with transfer to higher level of care. She received betamethasone 12mg IM and started on ampicillin for ppx. Time Spent with Patient Time attestation: Total time spent providing and/or coordinating transfer services: Exam Const: General: cooperative, healthy appearing, comfortable and no acute distress Orientation/consciousness: patient oriented x3 Resp: Effort & Inspection: normal respiratory effort Cardio: Rate: regular rate GI: GI Palp: No abdominal tenderness : Other: FHT's: 140's/ mod parris/ + accels/ no decels - cat 1 TOCO: irritability Cervix: 3/70/-2 Membranes: ROM+ positive Presentation: cephalic Skin: General skin exam: normal color Neuro: General: patient oriented x3 Extrem: General: normal to inspection Psych: Appearance: grossly normal Affect: normal affect Attitude: cooperative DS: Data Data Completed and Pending Labs on day of discharge: Labs from last 24 hours 04/07/25 12:31 WBC 8.8 RBC 3.67 L Hgb 9.6 L Hct 30.8 L MCV 83.9 MCH 26.2 MCHC 31.2 L RDW 12.9 Plt Count 328 MPV 10.0 Immature Gran % (Auto) 0.8 H Neut % (Auto) 74.3 H Lymph % (Auto) 16.2 L [place] % (Auto) 8.0 Eos % (Auto) 0.5 Baso % (Auto) 0.2 Lymph # (Auto) 1.42 [place] # (Auto) 0.7 H Eos # (Auto) 0.0 Baso # (Auto) 0.0 Abs Immat Gran (auto) 0.07 H Absolute Neuts (auto) 6.5 Absolute Nucleated RBC 0.000 Nucleated RBC % 0.0 Sodium 135 L Potassium 3.6 Chloride 107 Carbon Dioxide 22 Anion Gap 6 BUN 6 L Creatinine 0.38 L Estim Creat Clear Calc Not Reportable Estimated GFR > 60 Glucose 61 L Calcium 8.9 Total Bilirubin 0.6 AST 22 ALT 12 Alkaline Phosphatase 128 H Total Protein 6.8 Albumin 3.5 Syphilis IgG/IgM Ab Non-reactive HIV-1 RNA logcopies/mL Pending HIV-1 RNA PCR copies/ml Pending HIV 1&2 Ab/P24 Ag 4thGn Negative Blood Type A Negative Antibody Screen Positive Antibody Identification Passive Due to RH Imm Glob Antigen Identification TNP LAURA, IgG Interpret Not Performed LAURA, Poly Interpret Negative LAURA, Complement Interp Not Performed
== END 2025-04-07 14:12 | disposition short-term general hospital (02) ==
PROVIDERS: Admitting Provider Obstetrics & Gynecology; PCP Family Medicine; Visit Provider Obstetrics & Gynecology
DX: O42.913 Preterm premature rupture of membranes, unspecified as to length of time between rupture and onset of labor, third trimester (principal); Z3A.33 33 weeks gestation of pregnancy; Z87.891 Personal history of nicotine dependence; Z11.4 Encounter for screening for human immunodeficiency virus [HIV]
CPT/HCPCS: 36415; 76815; 80053; 81001; 85025; 86593; 86703; 86850; 86880; 86900; 86901; 87536; 96372; 96374; G0378; G0379; G0432; J0290; J0702; J7121

== ENCOUNTER 2025-09-14 02:09 | Day surgery (SDC) | payer OTHER, SELFPAY ==
[2025-09-03 12:10] VITALS: BMI 24.5
--- NOTE | 2025-09-03 12:12 | PC.NURSE ---
[facility] has started construction of its new state of the art ER which will open Spring 2026. With this, we anticipate parking may be a challenge for some our surgical patients and families. Parking spaces are limited but are available for all Surgical, obstetrics, and ER patients sharing this lot. If you arrive and find you are having a hard time finding a parking space, please note that we understand the challenges, please drive around the hospital and park near Hospital Entrance 1. When you enter this entrance, you can ask a volunteer to direct or take you back to the surgical waiting area to check in. We appreciate everyone?s understanding of these expected challenges while we build for your future. Report to the Outpatient Waiting Room, entrance under the green pavilion located off [address], at time _1100_ on date _[phone]_. Planned Procedure Time: _1pm_.? Time changes happen often and if your time is changed the preop area will call you the afternoon before. - You and your visitor will be asked to self-screen and do not enter if you have any COVID symptoms. Please call surgeon if you need to reschedule. - A mask is optional within the hospital at this time. Patients may have clear liquids (water, carbonated beverages, clear teas, apple juice) until 3 hours prior to surgery with a maximum of 20 ounces. - No food from midnight until time of surgery and no smoking, or chewing tobacco (or any form of nicotine). No chewing gum, candy or mints. Take only the following medications with a SIP of water on the morning of surgery: ___None____ DO NOT STOP ANY OF YOUR OTHER PRESCRIPTION MEDICATIONS PRIOR TO SURGERY EXCEPT THE FOLLOWING Hold all vitamins and supplements for 3 days per anesthesiologist. Medications to discontinue per physician Date to take last dose Please no make-up, nail qatari, hairspray, perfume, deodorant, or body powder the day of surgery.? No jewelry (including any body piercings) or valuables the day of surgery, leave them at home.? Please take a shower or bath the night before, or the morning of, surgery with an antibacterial soap.? Wear comfortable, loose fitting clothing.? - Jewelry must be removed prior to entering the operating room.? Rings and piercings that are not removed may be cut off. - The hospital will not accept responsibility for valuables.? - Please leave all valuables, including medications, at home the day of surgery. If you are going home after surgery, a licensed route sales delivery drivers supervisor must drive you home.? - NO public transportation without another adult if you receive anesthesia. - We recommend that an adult stay with you for 24 hours following discharge. - We also recommend that you do not drive, make important decision, drink alcoholic beverages, or take any drugs that were not prescribed by your health care provider for at least 24 hours after your discharge time. Follow any additional instructions given to you from your surgeon. Telephone instructions given to _Tahira__and asked if any additional questions and then verbalized understanding. Patient advised to call surgeon office or pre surgery nurse liaison [phone] if any additional questions.
[2025-09-14] VITALS (9 sets, daily range): BP systolic 109–133; BP diastolic 64–93; PULSE 57–94; RESP 13–16; TEMP 36.6–37.1; O2SAT 98–100; BMI 23.9
--- OUTSIDE RECORDS SUMMARY | 2025-09-14 02:12 | XMS_ITS | Clinical Summary ---
Author Organization [facility] Address [address] [place] [address] Care Team Providers Care Cranberry Sorter Name Role Phone Armando Yadav MD Primary Care Provider [phone] Source Comments [facility],non-owned Affiliates and Associated Physician Practices is amultiple site organization consisting of ambulatory clinics and hospital sitesin [place], [place], [place] and [place]. This disclosure is being madepursuant to the Care Everywhere program and may not contain all information available regarding this patient. Last updated 18.[facility] Allergies No known active allergies Medications * Be aware that medications may not be up to date on this document. Alwaysverify current medications with the patient. Vit-DSS-Fe Fum-FA ( vitamin with iron) tabletIndicatio ns: Take 1 (one) tablet by mouth once daily Reasons: Active ibuprofen (Motrin) 600 MG tablet Take 1 (one) tablet by mouth every 6 hours as needed for Pain 30 tablet 5 Active acetaminophen (Tylenol) 500 MG capsule Take 2 (two) capsules by mouth every 6 hours as needed for Fever or Pain 60 capsule 5 Active polyethylene glycol 3350 (Miralax) 17 GM/SCOOP powder Take 17 (seventeen) g by mouth once daily 238 g 5 Active docusate sodium (Colace) 100 MG capsule Take 1 (one) capsule by mouth once daily 60 capsule 5 Active Active Problems Problem Noted Date Diagnosed Date premature rupture of membranes (PPROM) delivered, current hospitalization 04/07/2025 Immunizations Immunization Administration Dates Next Due MMR 04/10/2025(Deferred: Patient Con dition - immune) Rho D Immune Globulin 04/10/2025 TDAP (7yrs+) 04/10/2025(Deferred: Patient Ref used) Social History Tobacco Use Types Packs/Day Years Used Date Smoking Tobacco: Never Smokeless Tobacco: Never Tobacco Cessation:Counseling Given: Not Answered Alcohol Use Standard Drinks/Week Comments Not Currently 0 (1 standard drink = 0.6 oz pur e alcohol) Overall Financial Resource Strain (CARDIA) Answe r Date Recorded How hard is it for you to pa y for the very basics like food, housing, medical care, and heating? Not hard at all 04/07/2025 [facility] - Occupational Stress Questionnaire Answer Date Recorded Do you feel stress - tense, restless, nervous, or anxious, or unable to sleep at night because your mind is troubled all the time - these days? Not at all 04/07/2025 Hunger Vital Sign Answer Date Recorded Within the past 12 months, y ou worried that your food would run out before you got the money to buy more. Never true 04/07/20 25 Within the past 12 months, t he food you bought just didn't last and you didn't have money to get more. Never true 04/07/2025 PRAPARE - Transportation Answer Date Re corded In the past 12 months, has l ack of transportation kept you from medical appointments or from getting medications? No 03/22 In the past 12 months, has l ack of transportation kept you from meetings, work, or from getting things needed for daily living? No 04/07/2025 Wharton Depression Scale Answer Date Recorded Wharton Depression Scale Total 1 04/09/2025 The thought of harming myself has occurred to me . Never 04/09/2025 Housing Stability Vital Sign Answer Harry e Recorded In the last 12 months, was t here a time when you were not able to pay the mortgage or rent on time? No 04/07/2025 In the past 12 months, how m any times have you moved where you were living? 1 04/07/2025 At any time in the past 12 m ont, were you homeless or living in a nursing home (including now)? No 04/07/2025 Comments No Sex and Gender Information Value Date Recorded Sex Assigned at Female 04/07/2025 10:57 PM CDT Legal Sex Female 7:05 AM CDT Gender Identity Not on file Sexual Orientation Not on file Last Filed Vital Signs Vital Sign Reading Time Taken Comments Blood Pressure 110/52 04/11/2025 12:50 PM CDT Pulse 91 04/11/2025 12:50 PM CDT Temperature 36.7 C (98 F) 04/11/2025 12:50 PM CDT Respiratory Rate 16 04/11/2025 12:50 PM CDT Oxygen Saturation 100% 04/11/2025 12:50 PM CDT Inhaled Oxygen Concentration - - Weight 77.1 kg (170 lb) 04/09/2025 5:32 AM CDT Height 170.2 cm (5' 7) 04/09/2025 5:32 AM CDT Body Mass Index 26.63 04/09/2025 5:32 AM CDT Plan of Treatment Health Maintenance Due Date Last Done Comments HPV VACCINE (1 - 3-dose series) 2015 HEPATITIS C SCREENING 10/04/2018 DTAP/TDAP/TD VACCINES (1 - Tdap) 2019 HEPATITIS B VACCINE (1 of 3 - 19+ 3-dose series) 2019 PAP SMEAR 2021 DEPRESSION SCREENING 10/22/2024 COVID-19 VACCINE (1 - 2024-2 6 season) 2025 INFLUENZA VACCINE (#1) 2025 CHLAMYDIA/GONORRHEA SCREENING 04/07/2026 04/07/2025 ZOSTER VACCINE (1 of 2) 2050 HIV SCREENING Completed 04/07/2025 HIB VACCINE Aged Out No longer eligi ble based on patient's age to complete this topic MENINGOCOCCAL (Group B) VACC INE SHARED DECISION-MAKING Aged Out No longer eligibl e based on patient's age to complete this topic MENINGOCOCCAL GROUPS A/C/Y/W VACCINE Aged Out No longer eligible b ased on patient's age to complete this topic PNEUMOCOCCAL VACCINE Aged Out No long er eligible based on patient's age to complete this topic Procedures Procedure Name Priority Date/Time Associated Diagnosis Comments CHLAMYDIA AND N. GONORRHOEAE BENNETT STAT 04/07/2025 4:50 PM CDT premature rupture of membranes (PPROM) delivered, current hospitalization ([facility]) HIV-1 HIV-2 ANTIBODY + HIV P24 AG PANEL Routine 04/07/2025 4:25 PM CDT premature rupture of membranes (PPROM) delivered, current hospitalization ([facility]) from Last 3 Months or Most Recently Relevant to Health Maintenance Results * CHLAMYDIA AND N. GONORRHOEAE BENNETT (04/07/2025 4:50 PM CDT) Chlamydia by BENNETT NEGATIVE NEGATIVE 04/08/2025 8:57 AM CDT [facility] Neisseria gonorrhoeae BENNETT NEGATIVE NEGATIVE 04/08/2025 8:57 AM CDT [facility] Microbiology ENTIRE ENDOCERVIX / Unknown Collection / Unknown 04/07/2025 4:50 PM CDT 04/07/2025 4:59 PM CDT Narrative [facility] - 04/08/2025 8:57 AM CDT This test performed by Qualitative real-time Polymerase Chain Reaction (PCR). Rxoie Marina MD LAB - MICROBIOLOGY ORDERABLE S Final Result [facility] [address] [place] [address], [facility] [phone] * HIV-1 HIV-2 ANTIBODY + HIV P24 AG PANEL (04/07/2025 4:25 PM CDT) HIV1/2 Ab + P24 Ag Non Reactive Non Reactive 04/07/2025 5:28 PM CDT [facility] Blood BLOOD SPECIMEN / Unknown Lab Venipuncture / Unknown 04/07/2025 4:25 PM CDT 04/07/2025 4:44 PM CDT Narrative [facility] - 04/07/2025 5:28 PM CDT No Laboratory evidence of HIV infection. Roxie Marina MD LAB - CHEMISTRY ORDERABLES F inal Result [facility] [address] [place] [address] from Last 3 Months or Most Recently Relevant to Health Maintenance Insurance Member Subscriber Plan / Payer (Ef fective 2023-Present) Name:Imani Shelton Relation to Subscriber:Spouse Name:MYRNAVICKY MEDINA Date of :2000 (Home) Address: [address] [place] [address] Payer ID:[id number] (NAIC) Type:O Address: [place] [id number] [facility] Member Subscriber Plan / Payer (Ef fective 2025-Present) Name:Imani Shelton Relation to Subscriber:Self Name:Imani Shelton Payer ID:[id number] (NAIC) Type:O Address: [place] [phone] [facility] Advance Directives * Full Code (Latest Code Status on File) Date Activated Date Inactivated Comments 04/09/2025 5:28 AM 04/11/2025 2:22 PM * Full Code Date Activated Date Inactivated Comments 04/07/2025 3:37 PM 04/09/2025 5:28 AM Care Teams Cranberry Sorter Relationship Specialty Start Date End Date Armando Yadav MD [address] [place] [address] PCP - General Family Medicine 04/07/25
--- OUTSIDE RECORDS SUMMARY | 2025-09-14 02:12 | XMS_ITS | Clinical Summary ---
Author Organization [facility] Address [address] [place] [id number] Care Team Providers Care Hotel Desk Clerk Name Role Phone Armando Yadav MD Primary Care Provider [phone] Armando Yadav MD Unavailable [phone] Allergies No known active allergies Medications No known medications Active Problems Problem Noted Date Diagnosed Date Left lower quadrant pain 10/14/2023 10/03/2023 Family History Medical History Relation Comments Cerebral palsy Brother menigitisiss Brother Aortic stenosis Maternal Grandmother Diabetes Maternal Grandmother Arthritis Mother Relation Status Comments Brother Father Alive Maternal Grandmother Mother Alive Social History Tobacco Use Types Packs/Day Years Used Date Smoking Tobacco: Never Smokeless Tobacco: Never Tobacco Cessation:Counseling Given: Not Answered Alcohol Use Standard Drinks/Week Comments Not Currently 0 (1 standard drink = 0.6 oz pur e alcohol) every once in awhile Comments No Sex and Gender Information Value Date Recorded Sex Assigned at Female 11/27/2024 5:11 PM CASH SURRENDER CALCULATOR Legal Sex Female 3:21 PM CDT Gender Identity Not on file Sexual Orientation Not on file Last Filed Vital Signs Vital Sign Reading Time Taken Comments Blood Pressure 121/68 05/22/2025 8:15 PM CDT Pulse 73 05/22/2025 6:52 PM CDT Temperature 37 C (98.6 F) 05/22/2025 6:52 PM CDT Respiratory Rate 17 05/22/2025 6:52 PM CDT Oxygen Saturation 100% 05/22/2025 8:15 PM CDT Inhaled Oxygen Concentration - - Weight 68 kg (150 lb) 05/22/2025 6:52 PM CDT Height 172.7 cm (5' 8) 05/22/2025 6:52 PM CDT Body Mass Index 22.81 05/22/2025 6:52 PM CDT Plan of Treatment Health Maintenance Due Date Last Done Comments Annual Physical 2003 HPV Vaccines (1 - 3-dose series) 2015 DTaP, Tdap and Td Vaccines (1 - Tdap) 2019 Hepatitis B Vaccines (1 of 3 - 19+ 3-dose series) 2019 Chlamydia Screening Females ages 16-24 10/14/2024 10/14/2023, 05/26/2023, 08/12/2021, Additional history exists Cervical Cancer Screening Pap Smear (Age 21 to 29) Every 3 Years 02/03/2025 02/03/2022 Cervical Cancer Screening 02/03/2025 COVID-19 Vaccine ( season) 2025 Influenza Adult (#1) 2025 Hepatitis C Completed 11/08/2023 Hepatitis A Vaccines Aged Out No long er eligible based on patient's age to complete this topic Meningococcal B Vaccine Aged Out No l onger eligible based on patient's age to complete this topic Meningococcal Vaccine Aged Out No christian fernando eligible based on patient's age to complete this topic Pneumococcal Vaccine: Pediatrics (0 to 5 Years) and At-Risk Patients (6 to 49 Years) Aged Out No longer eligible based on patient's age to complete this topic RSV Immunizations Under 20 Months Aged Out No longer eligible based on patient's age to complete this topic Procedures Procedure Name Priority Date/Time Associated Diagnosis Comments HEPATITIS C ANTIBODY Routine 11/08/2023 10:23 AM CASH SURRENDER CALCULATOR Antepartum Rh isoimmunization ([facility]HCC) Encounter for supervision of normal in third trimester ([facility]) CHLAMYDIA GC RNA Nurse Collected Priority 10/14/2023 11:00 PM CASH SURRENDER CALCULATOR CYTOPATH CERV/VAG THIN LAYER Routine 02/03/2022 8:09 AM CDT from Last 3 Months or Most Recently Relevant to Health Maintenance Results * HEPATITIS C ANTIBODY (11/08/2023 10:23 AM CASH SURRENDER CALCULATOR) HEPATITIS C AB NON-REACTI VE NON-REACT LUIS 11/09/2023 5:52 PM CASH SURRENDER CALCULATOR [facility] Comment: ANTIBODIES TO HCV NOT DETECTED. DOES NOT EXCLUDE THE POSSIBILITY OF EXPOSURE TO HCV. 11/08/2023 10:2 3 AM CASH SURRENDER CALCULATOR us Bridget Yeung MD LABORATORY Final Result Performing Organization Address City/[facility]/ZIP Co de Phone Number [facility] [address] [place] [address], [place] [phone] * CHLAMYDIA GC RNA (10/14/2023 11:00 PM CASH SURRENDER CALCULATOR) Pathologist [facility] SPECIMEN VAGINAL SPECIMEN 10/14/2023 11:17 PM CASH SURRENDER CALCULATOR [facility] CHLAMYDIA RNA TMA NEGATIVE NEGATIVE 023 12:47 AM CASH SURRENDER CALCULATOR [facility] Comment:PERFORMED BY NUCLEIC ACID AMPLIFICATION N.GONORRHOEAE RNA TMA NEGATIVE NEGATIVE 10/17/2023 12:47 AM CASH SURRENDER CALCULATOR [facility] Comment:PERFORMED BY NUCLEIC ACID AMPLIFICATION VAGINAL STRUCTURE / Unknown 10/14/2023 11:00 PM CASH SURRENDER CALCULATOR us Sheng Garcia MD MICROBIOLOGY - GENERAL ORD ERABLES Final Result [facility] [address] [place] [address], [place] [phone] [facility] [address] [place] [address], [place] [phone] * Cytopath Cerv/Vag Thin Layer (02/03/2022 8:09 AM CDT) THIN PREP PAP [facility] [address] [place] [address] Department of Pathology Pathology Report CERVICAL/VAGINAL PAP SMEAR REPORT Name: IMANI TEE Age: 12 2000 (Age: 21) Location: [facility] Sex: F Collected Date: 02/03/2022 [facility] #: [id number] Date Received: 02/07/2022 Date Reported: 02/07/2022 Provider: BONITA TRIMBLE MD INTERPRETATION CERVICAL/ENDOCERVI JASMINA: SATISFACTORY FOR EVALUATION. ENDOCERVICAL/TRANS FORMATION ZONE COMPONENT PRESENT. NEGATIVE FOR INTRAEPITHELIAL LESION OR MALIGNANCY. Electronically Signed Out By CHERYL Graham (ASCP) CLINICAL HISTORY Z12.4 PAP AND WATERPROOFER HELPER SURGICAL HISTORY-UNKNOWN ThinPrep Pap Test Only Date of Last Menstrual Period: UNKNOWN Menstrual Status: Regular SPECIMEN SUBMITTED CERVICAL/ENDOCERVI JASMINA Specimen Received:1 Thin Prep Vial, Image Assisted Pap (SMD) Please note: The Pap smear is not a diagnostic test. It is a screening test. Negative results on combined screening (Pap test and HPV-DNA) have a high negative predictive value (99.1-100 percent) for cervical cancer. The pap test is not effective in detecting cervical adenocarcinoma. [facility] 02/03/2022 8:09 AM CDT 02/07/2022 8:09 AM CDT Comment:CERVICAL/ENDOCERVICA L us Bonita Eller MD PATHOLOGY/CYTOLOGY ORDERABLES Final Result [facility] [address] [place] [address], from Last 3 Months or Most Recently Relevant to Health Maintenance Insurance [facility] Advance Directives * Full Code (Latest Code Status on File) Date Activated Date Inactivated Comments 10/14/2023 10:10 PM 10/15/2023 11:50 AM Care Teams Hotel Desk Clerk Relationship Specialty Start Date End Date Armando Yadav MD [address] [phone] PCP - General FAMILY PRACTICE 08/12/24 Armando Yadav MD [address] [place] [phone] FAMILY PRACTICE 08/12/24
--- NOTE | 2025-09-14 11:21 | WPDANESEPPF ---
Anes - Initial Pre Proc Eval Procedure: Operation Date: 09/14/25 13:00 Proposed Procedures p Diagnostic Laparoscopy Possible Fulguration of Endometriosis - Tray Hinds MD s Hysteroscopy Dilation and Curettage with Cystoscopy - Tray Hinds MD Date/Time: 09/14/25 11:21 Surgeon: Tray Hinds MD Pre Op Diagnosis: pelvic pain, menorrhagia Patient Data Age: 24 Gender: F Height: 1.73 m Weight: 73.2 kg Allergies Allergy/AdvReac Type Severity Reaction Status Date / Time No Known Allergies Allergy Verified 09/03/25 12:01 Home Medications ?Medication ?Instructions ?Recorded ?Confirmed ?Type No Home Medications 07/28/25 09/03/25 History Patient hx anesthesia problems: none Family hx anesthesia problems: none Results Review: All pre-operative results and documents have been reviewed as part of the pre-operative evaluation. [facility] Past Medical History Medical History Vaginal discharge Suppression of menses Endometriosis PCOS (polycystic ovarian syndrome) Lupus Surgical History Surgical History History of removal of skin mole H/O hernia repair History of hysteroscopy D & C Family History Family History Grandparent Family history of type 2 diabetes mellitus Mother No problems noted. Sibling Group B streptococcal infection Social History Social History Smoking status: Never smoker Tobacco type: e-cigarettes/vaping Smoking end date: 03/22/23 Additional smoking assessment comments: using patch to quit Alcohol intake: current Substance use: never Substance use type: does not use Do You Feel Safe in your Home?: Yes Lack of Transportation: YES Lack of Food: Never True Current Housing: I Have Housing Concerned About Future Housing: No Difficulty Paying Gas/Electric Bills: No Difficulty Paying for Meds: No Currently Unemployed: No Education: High School Diploma/GED Difficulty w/ Childcare or Family Care: No Living arrangements: with family Occupation/Education: occupation 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 Gender identity (if verbalized by the patient): Female Sexual Orientation (if Verbalized by the Patient): Straight or Heterosexual Spiritual care concerns: No Anes - Eval Final PreProcedure Day of Procedure 09/14/25 11:21 Patient weight: normal Heart: regular rate and rhythm Lungs: clear to auscultation Airway: Mallampati scale class 1 Neurological: alert and oriented ASA classification: II Emergent: no Anesthetic plan: proceed Anesthesia type and monitoring: general ETT and standard monitoring Results Review: All pre-operative results and documents have been reviewed as part of the pre-operative evaluation. Informed Consent: The patient's anesthetic plan and its attendant risks and benefits were discussed with the patient/family/POA. Questions were solicited and answers provided to the satisfaction of the patient/family/POA.
--- NOTE | 2025-09-14 11:22 | P.HP_ITS ---
H&P: HPI History of Present Illness Date/Time: 09/14/25 11:22 Chief Complaint: pelvic pain abnormal uterine bleeding endometriosis Narrative: diagnostic laparoscopy hysteroscopy D&C chromopertubation cystoscopy Review of Systems Cardiovascular: Cardiovascular: Denies chest pain, Denies leg edema, Denies pa lpitations, Denies dyspnea and Denies dyspnea on exertion Respiratory: Respiratory: Denies cough, Denies dyspnea and Denies dyspnea on exertion Gastrointestinal: Gastrointestinal: Denies abdominal pain, Denies constipation, Denies diarrhea, Denies nausea and Denies vomiting Genitourinary: Genitourinary: Denies hematuria, Denies urinary frequency, Denies dysuria, Denies pelvic pain, Denies urinary incontinence and Denies vaginal discharge Neurologic: Reports system reviewed and no additional complaints, except as documented Psychiatric: Psychiatric: Reports no additional psychiatric complaints Endocrine: Endocrine: Denies palpitations PMFSH Past Medical History Medical History Vaginal discharge Suppression of menses Endometriosis PCOS (polycystic ovarian syndrome) Lupus Surgical History Surgical History History of removal of skin mole H/O hernia repair History of hysteroscopy D & C Family History Family History Grandparent Family history of type 2 diabetes mellitus Mother No problems noted. Sibling Group B streptococcal infection Social History Social History Smoking status: Never smoker Tobacco type: e-cigarettes/vaping Smoking end date: 03/22/23 Additional smoking assessment comments: using patch to quit Alcohol intake: current Substance use: never Substance use type: does not use Do You Feel Safe in your Home?: Yes Lack of Transportation: YES Lack of Food: Never True Current Housing: I Have Housing Concerned About Future Housing: No Difficulty Paying Gas/Electric Bills: No Difficulty Paying for Meds: No Currently Unemployed: No Education: High School Diploma/GED Difficulty w/ Childcare or Family Care: No Living arrangements: with family Occupation/Education: occupation 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 Gender identity (if verbalized by the patient): Female Sexual Orientation (if Verbalized by the Patient): Straight or Heterosexual Spiritual care concerns: No Meds Home Medications and Allergies Home Medications ?Medication ?Instructions ?Recorded ?Confirmed ?Type No Home Medications 07/28/25 09/03/25 H istory Allergies Allergy/AdvReac Type Severity Reaction Status Date / Time No Known Allergies Allergy Verified 09/03/25 12:01 Exam Const: General: no acute distress Eyes: EOM: EOMs intact bilaterally Neck: Neck: supple Thyroid: thyroid normal Chest: Breast/axilla inspection: normal inspection of the breasts Breast/axilla palpation: normal palpation of the breasts, normal palpation of the axillae and no axillary lymphadenopathy Resp: Effort & Inspection: normal respiratory effort Auscultation: clear to auscultation bilaterally Cardio: Rate: regular rate Rhythm: regular rhythm GI: Inspection: non-distended GI Palp: Yes Soft to palpation, No Tenderness to palpation present (GI) and No Guarding due to palpation present (GI) Auscultation: normal bowel sounds : General: No bladder normal to palpation External Female Exam: normal external appearance Speculum Exam - Vagina: normal vaginal discharge and No vaginal bleeding Speculum Exam - Cervix: nontender Bimanual exam- vagina & uterus: No bladder normal to palpation and No Cervical tenderness present OB/external & speculum: No vaginal bleeding Skin: General skin exam: normal color and no rashes or lesions noted Neuro: Cognition (Neuro): normal cognition Speech: normal speech Extrem: General: normal to inspection and no edema Psych: Mental Status: mental status grossly normal Affect: normal affect Assessment and Plan Assessment and plan (1) Endometriosis: Code(s): N80.9 - Endometriosis, unspecified Status: Acute Assessment and Plan: 24-year-old female with long history of endometriosis Patient has laparoscopy proven endometriosis Has been dealing with pelvic pain and abnormal bleeding Patient consented for diagnostic laparoscopy with possible fulguration of endometriosis Will plan for chromopertubation to evaluate for tubal patency (2) Menorrhagia: Code(s): N92.0 - Excessive and frequent menstruation with regular cycle Status: Acute Assessment and Plan: Patient continues to have abnormal uterine bleeding Will plan for hysteroscopy D&C (3) Pelvic pain: Code(s): R10.20 - Pelvic and perineal pain unspecified side Status: Acute Assessment and Plan: Patient has known endometriosis Will perform cystoscopy to evaluate for IC
--- NOTE | 2025-09-14 11:28 | WPDHPUPDATE1 ---
History and Physical Update Update Date/Time: 09/14/25 11:28 History and Physical has been reviewed, including an updated exam of the patient. There are NO changes in the patient's condition. Risks, benefits, and alternatives have been discussed and questions answered. Patient agrees to proceed with procedure.
[2025-09-14 11:42] LABS: Hematocrit 41.8 % (37.0-47.0); Hemoglobin 13.5 g/dL (12.0-15.0); Mean Corpuscular HGB Conc 32.3 g/dl (32-36); Mean Corpuscular Hemoglobin 28.8 pg (26-34); Mean Corpuscular Volume 89.1 fl (80-100); Platelet Count Result 396 k/mm3 (150-375); Red Blood Count 4.69 M/mm3 (4.2-5.4); White Blood Count 6.5 K/mm3 (4.5-10.0)
[2025-09-14] MEDS: KETOROLAC 15 MG/ML VIAL (*BKC) IV PUSH (11:42)
[2025-09-14] MEDS: ACETAMINOPHEN 500 MG TABLET 1000 MG PO (11:42)
[2025-09-14] MEDS: LIDO 1%/EPINEPHRINE 1:100,000 50 ML VIAL (12:13)
[2025-09-14] MEDS: LACTATED RINGERS 1,000 ML 30 ML IV CONT ×2 (12:34→12:58)
--- NOTE | 2025-09-14 12:35 | W.PM.PROC2 ---
Procedure Note - Detailed Date of Procedure 09/14/25 Pre-op Diagnosis pelvic pain, menorrhagia, endometriosis Post-op Diagnosis Same Procedure Performed diagnostic laparoscopy fulguration of endometriosis hysteroscopy D&C chromopertubation cystoscopy Surgeon Tray Hinds MD Anesthesia General Indications abnormal uterine bleeding pelvic pain Findings normal pelvic survey, 2 small hyperpigmented lesions in the posterior cul de sac, patent fallopian tubes bilaterally normal endometrial cavity, normal tubal ostia bilaterally globally inflammed bladder mucosa. Description of Procedure INDICATIONS: The risks, benefits and alternatives of laparoscopy were discussed with the patient, including but not limited to infection, severe loss of blood, cardiac arrest, , thrombosis, injury to other organs such as bowel, bladder or ureter, fistula, injury to blood vessels, risk of blood transfusion, loss of one or more ovary, and possible need for laparotomy to complete the surgery or any repair. OPERATIVE PROCEDURE: The patient was taken to the operating room where general endotracheal anesthesia was undertaken and found to be adequate. She was then prepped and draped in the dorsal lithotomy position and placed in adjustable stirrups. A pre-operative team brief and a time out were completed. A catheter was placed to drain the bladder. Retractors were placed placed in the vagina and the cervix was identified. An acorn uterine manipulator was placed. A 5 mm skin incision was made in the umbilicus. A 5 mm optical trocar was then placed with direct camera visualization of the abdominal layers during placement. The trocar stylet was removed and the camera was used to verify intra-abdominal placement. CO2 insufflation was then connected and resumed. The pelvis was inspected. A left lower quadrant 5 mm port was placed in the standard fashion after using local anesthetic. Pelvic survey was performed. There were little to no endometriosis lesions identified within the pelvis. There were two small hyperpigmented lesions that may have been gun powder lesions. Both lesions were cauterized with needle point cautery. The surgical field was thoroughly irrigated using normal saline. All surgical beds were noted to be hemostatic. Both fallopian tubes were inspected out to the fimbriae. Diluted methylene blue was injected through the acorn manipulator. Bilateral spill was directly visualized from each fallopian tube via laparoscopy. At this point the laparoscopic portion was ended. The abdomen was relieved of all CO2 gas. All remaining trocars were removed from the abdomen. Sponge, lap and needle counts were correct. All skin incisions were closed with 4-0 Vicryl suture subcuticularly. The uterine manipulator was removed from the uterus. Hemostasis of the cervix was noted. Attention was then turned to the pelvis for the hysteroscopic portion of the procedure. The uterus sounded to 8 cm. The cervix was dilated with sequential Janette dilators. Hysteroscopy, using a normal saline medium, was performed and showed the above findings. Sharp uterine curettage was then performed and tissue placed on Telfa. The tenaculum was removed and hemostasis was observed. Cystoscopy was performed to evaluate the bladder. The bilateral ureters were noted to efflux strongly. The bladder mucosa was noted to be inflamed and erythematous globally. At this time the procedure was ended. The patient was taken out of dorsal lithotomy position. Anesthesia was reversed. The patient was taken to the PACU. Estimated Blood Loss 5 Drains No Packing No Pathology Yes (endometrial curreting) Complications No immediate complications Condition Stable Disposition PACU [facility] Billing Surgery - Charge Forward: Surgery Billing
--- NOTE | 2025-09-14 12:41 | S_PTH ---
PATIENT: Tahira Shelton LOC: [facility] U#:[id number] AGE/SX: 24/F ROOM: RE09/14/[address]: Tray Hinds MD : 2000 BED: DIS: 09/14/2025 SPEC #: [id number] RECD: 09/14/25 13:29 STATUS: JOAQUIN REQ #: [id number] FAITH: 09/14/25 12:[address]: Tray Hinds DEPT: [facility] Surgical RECD BY: Maty Collins ENTERED: 09/14/25 13:30 SP TYPE: Surgical OTHR DR: Armando Yadav M.D. Tissues: A - Endometrial Curettings Procedures: Hematoxylin and Eosin Stain Gross and Microscopic Level 4
[2025-09-14] MEDS: fentaNYL CITRATE INJ (*CRX) 100 MCG/2 ML VIAL 25 MCG IV PUSH ×4 (12:53→13:09)
[2025-09-14] MEDS: oxyCODONE HCL (*CRX) 5 MG TAB IR PO (13:43)
== END 2025-09-14 14:29 | disposition home or self-care (01) ==
PROVIDERS: PCP Family Medicine; Visit Provider Student in an Organized Health Care Education/Training Program
PROC: (CPT 49320; principal; 2025-09-14 13:00)
PROC: 0U5B8ZZ Destruction of Endometrium, Via Natural or Artificial Opening Endoscopic (ICD-10-PCS; CPT 58563; 2025-09-14 13:00)
DX: N94.9 Unspecified condition associated with female genital organs and menstrual cycle (principal); E28.2 Polycystic ovarian syndrome; M32.9 Systemic lupus erythematosus, unspecified; F17.290 Nicotine dependence, other tobacco product, uncomplicated; Z98.890 Other specified postprocedural states
CPT/HCPCS: 58558; 58662; 36415; 85027; 86850; 86900; 86901; 88305; A9270; J1100; J1885; J2003; J2004; J2250; J2405; J2704; J3010; J7030; J7120; Q9968